=== PATIENT | male | born 1990 ===

== ENCOUNTER 2017-05-07 18:52 | Emergency (ER) | payer MEDICAID, OTHER ==
[2017-05-07 18:59] VITALS: TEMP 98.2
[2017-05-07] MEDS ORDERED: Sodium Chloride 0.9% 1,000 ML IV STA (19:26)
[2017-05-07 20:01] LABS: VENOUS BLOOD GAS PCO2 26 mmHg (40-60); VENOUS BLOOD GAS PO2 35 mm/Hg (30-55); VENOUS BLOOD PH 7.54 (7.32-7.43)
--- NOTE | 2017-05-07 20:10 | ED PDOC ---
HPI: Abdomen Time Seen by Provider: 05/07/17 19:14 Chief Complaint (Nursing): Abdominal Pain Chief Complaint (Provider): Nausea, Vomiting, Abdominal Pain History Per: Patient Onset/Duration Of Symptoms: Days (3 days ago) Outside of [place] travel?: No Severity: Mild Location Of Pain/Discomfort: Epigastric Associated Symptoms: Nausea, Vomiting. denies: Fever, Chills, Diarrhea Additional Complaint(s): Patient is a 26 y/o male with a past medical history of polycythemia and open heart surgery, who presents to the ED complaining of nausea and vomiting since 3 days prior to arrival (Friday evening), with associated mild epigastric pain. Patient states he has not been able to keep anything down since, not even water. He reports that he had a normal bowel movement yesterday and denies any diarrhea, fever, chills, recent sick contacts, recent travel, or antibiotic usage. PCP: NO FAMILY PROVIDER Past Medical History Reviewed: Historical Data, Nursing Documentation, Vital Signs Vital Signs: Last Vital Signs Temp 98.2 F 05/07/17 23:17 Pulse 78 05/07/17 23:17 Resp 16 05/07/17 23:17 BP 128/78 05/07/17 23:17 Pulse Ox 93 L 05/07/17 23:17 - Medical History PMH: Denies: Chronic Kidney Disease Other PMH: Polycythemia, Congenital Heart Disease - Surgical History Surgical History: Appendectomy Other surgeries: Open heart surgery - Family History Family History: States: Unknown Family Hx - Social History Current smoker - smoking cessation education provided: No Ex-Smoker (has not smoked in the last 12 months): No Alcohol: None Drugs: Denies - Home Medications Home Medications: Ambulatory Orders Medication Instructions Recorded Rivaroxaban [Xarelto] 15 mg PO BID #42 tab 05/11/16 Ondansetron [Zofran] 4 mg PO Q8H #12 tab 05/07/17 - Allergies Allergies/Adverse Reactions: Allergies Allergy/AdvReac Type Severity Reaction Status Date / Time apple Allergy SHORTNESS Verified 05/07/17 18:55 OF BREATH Review of Systems ROS Statement: Except As Marked, All Systems Reviewed And Found Negative Constitutional: Negative for: Fever, Chills Gastrointestinal: Positive for: Nausea, Vomiting, Abdominal Pain (Epigastric). Negative for: Diarrhea Physical Exam - Reviewed Nursing Documentation Reviewed: Yes Vital Signs Reviewed: Yes - Physical Exam Appears: Positive for: Non-toxic, No Acute Distress Head Exam: Positive for: ATRAUMATIC, NORMOCEPHALIC Skin: Positive for: Normal Color, Warm, Dry Eye Exam: Positive for: Normal appearance, EOMI, PERRL Neck: Positive for: Normal, Painless ROM, Supple Cardiovascular/Chest: Positive for: Regular Rate, Rhythm, Other (Chest: Midline old surgical scar). Negative for: Murmur Respiratory: Positive for: Normal Breath Sounds. Negative for: Respiratory Distress Gastrointestinal/Abdominal: Positive for: Soft, Tenderness (Mild epigastric) Back: Positive for: Normal Inspection. Negative for: L CVA Tenderness, R CVA Tenderness, Vertebral Tenderness Extremity: Positive for: Normal ROM. Negative for: Pedal Edema, Deformity Neurologic/Psych: Positive for: Alert, Oriented (x3). Negative for: Motor/ Sensory Deficits - Laboratory Results Result Diagrams: 05/07/17 20:15 05/07/17 20:15 - ECG O2 Sat by Pulse Oximetry: 90 (RA) Pulse Ox Interpretation: Normal Medical Decision Making Medical Decision Makin:20 Initial Impression: Gastroenteritis Initial Plan: --EKG --Labs --PPI --Zofran -Patient confirms oxygen saturation level is always low Time: 23:05 --Patient is feeling much better and tolerating PO. Upon provider evaluation patient is medically stable, and requires no further treatment in the ED at this time. Patient will be discharged home. All questions were answered regarding diagnosis. Return if symptoms persist or worsen. Scribe Attestation: Documented by Piper Thacker, acting as a scribe for Ramone Calderón MD Provider Scribe Attestation: All medical record entries made by the Scribe were at my direction and personally dictated by me. I have reviewed the chart and agree that the record accurately reflects my personal performance of the history, physical exam, medical decision making, and the department course for this patient. I have also personally directed, reviewed, and agree with the discharge instructions and disposition. Disposition - Clinical Impression Clinical Impression: Gastroenteritis - Patient ED Disposition Is Patient to be Admitted: No - Disposition Disposition: Routine/Home Disposition Time: 23:05 Condition: IMPROVED Prescriptions: Ondansetron [Zofran] 4 mg PO Q8H #12 tab Instructions: Gastroenteritis (ED) Forms: [employer] [place] [facility] (Hungarian), [facility] ED School/Work Excuse
[2017-05-07 20:46] LABS: ALBUMIN 4.8 g/dL (3.5-5.0); ALT/SGPT 49 U/L (21-72); AST/SGOT 31 U/L (17-59); BLOOD UREA NITROGEN 23 mg/dl (9-20); CALCIUM 9.5 mg/dL (8.4-10.2); GFR AFRICAN-AMERICAN > 60; GFR NON-AFRICAN AMERICAN > 60
[2017-05-07 20:57] LABS: ALB/GLOB RATIO 1.3 (1.0-2.1)
[2017-05-07 21:11] LABS: BASO % 0.6 % (0.0-2.0); EOS # 0.1 K/uL (0.0-0.7); EOS % 1.3 % (0.0-4.0); LYMPH # 1.4 K/uL (1.0-4.3); LYMPH % 17.8 % (20.0-40.0); MEAN CELL VOLUME 91.1 fl (80.0-94.0); MEAN CORPUSCULAR HEMOGLOBIN 30.8 pg (27.0-31.0); MEAN CORPUSCULAR HGB CONC 33.8 g/dL (33.0-37.0); MEAN PLATELET VOLUME 10.5 fl (7.2-11.7); MONO # 0.8 K/uL (0.0-0.8); MONO % 10.4 % (0.0-10.0); NEUT # 5.4 K/uL (1.8-7.0); NEUT % 69.9 % (50.0-75.0); RBC 6.83 Mil/uL (4.40-5.90); RED CELL DISTRIBUTION WIDTH 13.6 % (11.5-14.5); WHITE BLOOD COUNT 7.7 K/uL (4.8-10.8)
[2017-05-07] MEDS ORDERED: Potassium Chloride 20 mEq ER Tab PO ONE (21:20)
[2017-05-07 23:19] VITALS: BP 128/78; PULSE 78; RESP 16
[2017-05-07 23:47] VITALS: O2SAT 90
== END 2017-05-07 23:20 | disposition home or self-care (01) ==
LOC: H.ER 18:52
DX: K52.9 Noninfective gastroenteritis and colitis, unspecified (principal); Z87.891 Personal history of nicotine dependence
CPT/HCPCS: 80053; 82803; 85025; 96361; 96374; 96375; 99282; C9113; J2405; J7040